=== PATIENT | female | born 1950 | race Caucasian/White ===

== ENCOUNTER 2022-12-15 06:37 | Emergency (ER) | payer MEDICARE, SELFPAY ==
[2022-12-15 06:46] VITALS: BP 130/85; PULSE 95; RESP 18; TEMP 36.9; O2SAT 99; BMI 24.1
--- NOTE | 2022-12-15 06:57 | CRLHL7_ITS ---
For Patients: As a result of the Cures Act, medical imaging exams and procedure reports are released immediately into your electronic medical record. You may view this report before your referring provider. If you have questions, please contact your health care provider. Indication: Fall, left-sided knee Pain Comparison: None available. Technique: Standing AP, lateral, and sunrise views of the left knee were obtained Findings: There is no displaced fracture or dislocation. There is moderate tricompartmental degenerative changes with medial greater than lateral joint space narrowing and tibial spine spurring. There is moderate suprapatellar joint effusion. Impression: Moderate tricompartmental degenerative changes with moderate suprapatellar joint effusion. No evidence of displaced fracture. Dictated by Cecil Ramos MD @ 12/15/2022 8:24:15 AM (Electronically Signed)
--- NOTE | 2022-12-15 06:58 | ED_ITS ---
HPI - Extremity Injury (Lower) General Date Seen: 12/15/22 Chief Complaint: Extremity Pain/Injury, Lower Stated Complaint: Fell, Left knee pain Time Seen by Provider: 12/15/22 06:45 Source: patient Mode of arrival: ambulatory Limitations: no limitations History of Present Illness HPI Narrative: Patient is 72-year-old female who was at home last night, where she fell off a stool, did which she described as a 3 point landing, on her left knee, her buttocks, and her left shoulder, she did not hit her head, she denies any neck pain, any headache, she is on no blood thinners. She says she still had a fair bit adrenaline in her in she is able to get up walk, take a shower, her left knee became particularly more sore over the course of the night, she tried 1 homeopathic remedy, and put a knee brace on and went to sleep, this morning she called a friend to bring her to the hospital, could she is having pain, she is able to bear weight and walk on her left knee which she has to go really slow, her left shoulder she said really isn't that sore she has full range of motion, and her buttocks have no soreness at all. complaint: knee injury Onset (ago): hour(s) (12) Injury: Left: knee Type of Injury: blunt Place: home Severity: moderate Relieving factors: immobilization Exacerbating factors: weight bearing and movement Context: fall Other symptoms: none Treatments prior to arrival: splint Related Data Home Medications Medication Instructions Recorded Confirmed No Known Home Medications 12/15/22 12/15/22 Allergies Allergy/AdvReac Type Severity Reaction Status Date / Time No Known Drug Allergies Allergy Verified 12/15/22 06:49 Review of Systems Status of ROS: Reports: 6 or more systems reviewed and unremarkable except as noted in History and below [facility] Social History Smoking Status: Never smoker Second hand tobacco smoke exposure: No How often do you have a drink containing alcohol: never How often do you have six or more drinks on one occasion: Never AUDIT-C Alcohol total score: 0 Non-prescribed substance use: denies use service: No Exam Narrative: Exam Narrative: I find her resting in room 5 in no apparent distress, she is alert oriented x3, no evidence of any injury over head or neck region, her left shoulder, has no tenderness to palpation along her clavicle shoulder, she is able to move her left shoulder through full range of motion of internal external rotation abduction adduction as no rotator cuff signs, and full motion of her left elbow. And wrist. Her buttock shows no tenderness to palpation there is no bruising, noted here over her L-spine or sacrum. Her left knee is somewhat sore over the lateral joint line, she has range of motion from 0? through 90?, there is no effusion noted, but plenty of fossa is normal, her MCL and LCL seem intact, as does her ACL. Lower extremity show normal sensation, bilaterally, normal pulses DP and posterior tibial. Const: Vital Signs, click to edit/add: Vital Signs - 24 hr 12/15/22 06:46 Temperature 98.5 F Pulse Rate [Right Pulse Oximeter] 95 Respiratory Rate 18 Blood Pressure [Ri ght Upper Arm] 130/85 Pulse Oximetry 99 Oxygen Delivery Me thod Room Air Documenting provider has reviewed patient's vital signs: yes Course Course Hospital Course: Will go ahead and get an x-ray of her left knee, give her some ice, some Tylenol, Discussed with the patient and patient's daughter, x-ray of the knee does not show any acute issue by my review, we will discharge home she will use the brace, Tylenol, follow-up with primary care consider orthopedic follow-up she has ongoing signs and symptoms. Vital Signs Vital signs: Initial Vital Signs Temperature 98.5 F 12/15/22 06:46 Temperature Source Temporal Artery Scan 12/15/22 06:46 Pulse Rate 95 12/15/22 06:46 Respiratory Rate 18 12/15/22 06:46 Blood Pressure 130/85 12/15/22 06:46 Blood Pressure Mean 100 12/15/22 06:46 Blood Pressure Position Sitting 12/15/22 06:46 Pulse Oximetry 99 12/15/22 06:46 Oxygen Delivery Method 12/15/22 06:46 Vital Signs Temperature 98.5 F 12/15/22 06:46 Pulse Rate 95 12/15/22 06:46 Respiratory Rate 18 12/15/22 06:46 Blood Pressure 130/85 12/15/22 06:46 Pulse Oximetry 99 12/15/22 06:46 Oxygen Delivery Method 12/15/22 06:46 Temperature 98.5 F 12/15/22 06:46 Pulse Rate 95 12/15/22 06:46 Respiratory Rate 18 12/15/22 06:46 Blood Pressure 130/85 12/15/22 06:46 Pulse Oximetry 99 12/15/22 06:46 Oxygen Delivery Method 12/15/22 06:46 MDM - Extremity Injury (Lower) Differential Diagnosis Differential diagnosis: Likely acute internal derangement of knee, fracture of femur, fracture of hip, puncture wound of foot and ankle fracture Medical Records Attestation: I reviewed the patient's medical records. Imaging Data knee xray : Attestation: I have reviewed the pertinent imaging results. My impression: moderte arthritis, no fracture seen. Discharge Plan Discharge Clinical Impression: Knee strain, Contusion of left knee Patient Disposition: Home w/ Parent or Adult Condition: Stable Instructions: Contusion in Adults (ED) Additional Instructions: Home,rest and use of ice on the knee for 15 in on and off multiple times. No evidence on xray of injury, fracture, but this may be a contusion( bone bruise) and strain of the ligaments. Acetaminophen 1000 mg po tid for the pain. I would wear the brace for stability and follow up in 7 days for recheck with primary care for recheck. Prescriptions: No Action No Known Home Medications Stand Alone Forms: Motorator Info Instructions
[2022-12-15] MEDS: ACETAMINOPHEN 500 MG TABLET 1000 MG PO (07:11)
== END 2022-12-15 08:18 | disposition home or self-care (01) ==
PROVIDERS: Emergency Provider Family Medicine
DX: S80.02XA Contusion of left knee, initial encounter (principal); W08.XXXA Fall from other furniture, initial encounter
CPT/HCPCS: 73562; 99283; A9270

== ENCOUNTER 2023-01-17 15:30 | Outpatient (RCR) | payer MEDICARE, SELFPAY | END 2023-05-01 09:16 | disposition home or self-care (01) | PROVIDERS: Visit Provider Family Medicine | DX: M17.0 Bilateral primary osteoarthritis of knee (principal); M25.562 Pain in left knee; R26.81 Unsteadiness on feet; R53.1 Weakness; Z51.89 Encounter for other specified aftercare | CPT/HCPCS: 97110; 97162 ==

== ENCOUNTER 2023-10-28 07:47 | Outpatient (CLI) | payer OTHER, SELFPAY | END 2023-10-28 07:48 | disposition home or self-care (01) | LOC: AMB 11-15 17:26 | PROVIDERS: Visit Provider Family Medicine | DX: R06.09 Other forms of dyspnea (principal); T58.91XA Toxic effect of carbon monoxide from unspecified source, accidental (unintentional), initial encounter; Y92.009 Unspecified place in unspecified non-institutional (private) residence as the place of occurrence of the external cause | CPT/HCPCS: A0998 ==